=== PATIENT | male | born 1940 | race Caucasian/White ===

== ENCOUNTER 2022-10-21 14:51 | Outpatient (AMB) | payer MEDICARE, SELFPAY ==
--- NOTE | 2022-10-21 14:53 | A.OFFVIS_ITS ---
Intake Vital Signs 10/21/22 14:54 Height 5 ft 8 in Weight 210 lb 8.663 oz BMI 32.0 BP 120/70 Blood Pressure Location Lt brachial Position Sitting Respiration 14 Pulse 62 Pulse Source Pulse Oximeter Pulse Oximetry (%) 98 Oxygen Delivery Method Room Air Intake Visit Reasons: Emphysema Allergies No Known Allergies Allergy (Verified 10/21/22 14:54) Medication List - Last Reconciled 10/21/22 by Bailee Pisano RRT No Known Home Meds HPI HPI Comments History of Present Illness Details The patient is here for pulmonary evaluation. The patient is an 82-year-old gentleman who is developing worsening cough. His is very concerned. The cough is mixed productive and nonproductive. He does associated with a postnasal drip. He does not use any medications for this. In the meantime as far as the workup he did have a chest x-ray that was abnormal and ended up having a CT scan of the chest which I personally reviewed. The patient did have some slight degree of emphysema but not significant. More significant was the fact that he had peripheral subpleural reticular changes consistent with interstitial lung disease. No evidence of any ground-glass opacities or honeycombing. In addition to the findings the patient was noted to have a small subcentimeter pulmonary nodule measuring around 4 mm in size. I reassured the patient and his that this is extremely small and will have a repeat CT scan in 6 months' time. In the meantime will treat him for sinusitis and see if he has improvement of his cough. For the most part the cough does not bother him this is a people around him. Denies any significant weight loss or night sweats. Otherwise the patient is feeling well. [facility], [facility] Medical History (Updated 10/24/22 @ 23:39 by Davon Osei MD) Bronchitis History of colon polyps Hypertension ILD (interstitial lung disease) Pulmonary nodules Sinusitis Upper airway cough syndrome Surgical History (Updated 10/21/22 @ 11:03 by Lisa Johnson PA-C) History of colonoscopy Family History (Updated 10/21/22 @ 11:02 by Lisa Johnson PA-C) Brother Colon cancer Review of Systems Const Denies fever(s) and Denies weight loss Eyes Denies change in vision ENT Reports nasal congestion, Reports nasal discharge and Reports post nasal drip Card Denies chest pain and Denies dyspnea Resp Reports chest congestion, Reports cough, Denies dyspnea and Denies wheezing GI Denies abdominal pain Musc Reports no additional complaints Skin/Breast Denies rash Neuro Reports no additional complaints Lloyd/Lymph Denies easy bruising and Denies lymphadenopathy Aller/Immun Denies wheezing Physical Exam Vital Signs: Last Vital Signs Pulse 62 10/21/22 14:54 Resp 14 10/21/22 14:54 BP 120/70 10/21/22 14:54 Pulse Ox 98 10/21/22 14:54 Oxygen Delivery Method Room Air 10/21/22 14:54 BMI result Body Mass Index 32.0 Const General: cooperative and comfortable HEENT Head: Yes normocephalic Neck Neck: Yes supple Chest Chest palpation & inspection: normal inspection of the chest Resp Effort & Inspection: normal respiratory effort Auscultation: crackles and diminished lung sounds Cardio Heart sounds: S1 normal heart sound present and S2 normal heart sound present GI Palpation (GI): Soft to palpation Skin General skin exam: no rashes or lesions noted Extrem General: Yes no clubbing, cyanosis or edema Assessment & Plan Assessment & Plan (1) Upper airway cough syndrome: Code(s): R05.8 - Other specified cough (2) Bronchitis: Code(s): J40 - Bronchitis, not specified as acute or chronic (3) Pulmonary nodules: Code(s): R91.8 - Other nonspecific abnormal finding of lung field (4) Sinusitis: Code(s): J32.9 - Chronic sinusitis, unspecified Qualifiers: Sinusitis location: unspecified location Chronicity: subacute Qualified Code(s): J01.90 - Acute sinusitis, unspecified (5) ILD (interstitial lung disease): Code(s): J84.9 - Interstitial pulmonary disease, unspecified Plan I suspect that the ILD has been there for PFTs Doxycycline nasal steroid therapy CT chest 04/2022 F/U 6 months Orders: Orders 2 CT chest wo IV con 6 Months R91.8 - Other nonspecific abnormal finding of lung field Medications: New doxycycline hyclate 100 mg PO BID 20 caps 0RF 10 days fluticasone propionate 50 mcg/actuation 2 sprays intranasal DAILY 15.8 mL 1RF 30 days J31.0 - Chronic rhinitis Coding Level of Care Code New Pt Level 4 (51884) Diagnoses Upper airway cough syndrome R05.8 Bronchitis J40 Pulmonary nodules R91.8 Sinusitis J01.90 Sinusitis location: unspecified location Chronicity: subacute ILD (interstitial lung disease) J84.9 Time Spent (min) 45
[2022-10-21 14:54] VITALS: BP 120/70; PULSE 62; RESP 14; O2SAT 98; BMI 32.0
== END 2022-10-25 09:22 | disposition home or self-care (01) ==
PROVIDERS: PCP Internal Medicine; Visit Provider Hospitalist
DX: R05.8 Other specified cough (principal); J40 Bronchitis, not specified as acute or chronic; R91.8 Other nonspecific abnormal finding of lung field; J01.90 Acute sinusitis, unspecified; J84.9 Interstitial pulmonary disease, unspecified
CPT/HCPCS: 99204

== ENCOUNTER → 2022-10-21 14:51 | Outpatient (BNVA) | payer MEDICARE, SELFPAY | PROVIDERS: PCP Internal Medicine; Visit Provider Hospitalist | DX: J01.90 Acute sinusitis, unspecified (principal); J84.9 Interstitial pulmonary disease, unspecified; J40 Bronchitis, not specified as acute or chronic; R91.8 Other nonspecific abnormal finding of lung field; R05.8 Other specified cough | CPT/HCPCS: 99202 ==

== ENCOUNTER 2023-05-02 14:43 | Outpatient (AMB) | payer MEDICARE, SELFPAY ==
[2023-05-02 14:47] VITALS: BP 156/78; PULSE 84; O2SAT 98; BMI 31.8
--- NOTE | 2023-05-02 14:47 | MHC.OFFVIS ---
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 His is very concerned. The cough is mixed productive and nonproductive. He does associated with a postnasal drip. He does not use any medications for this. In the meantime as far as the workup he did have a chest x-ray that was abnormal and ended up having a CT scan of the chest which I personally reviewed. The patient did have some slight degree of emphysema but not significant. More significant was the fact that he had peripheral subpleural reticular changes consistent with interstitial lung disease. No evidence of any ground-glass opacities or honeycombing. In addition to the findings the patient was noted to have a small subcentimeter pulmonary nodule measuring around 4 mm in size. I reassured the patient and his that this is extremely small and will have a repeat CT scan in 6 months' time. In the meantime will treat him for sinusitis and see if he has improvement of his cough. For the most part the cough does not bother him this is a people around him. Denies any significant weight loss or night sweats. Otherwise the patient is feeling well. 05/02/2023 the patient is here for a pulmonary follow-up visit. Overall the patient has been doing better from a cough standpoint. Denies any significant chest congestion. We had did request a an Acapella valve for him for the chest congestion but he never used it. he does not feel like he needs it. He is getting excited about the spring as he is going to start playing golf. He does play 18 holes although he does use a cart. Denies any significant worsening of the shortness of breath. We did review his recent CT scan of the chest that he just had a [facility]. We also did compared to the CT scan he had back in April 2022. it appears that the interstitial lung disease is about the same. The pulmonary fibrosis has not progressed and is primarily in the periphery of the lungs. Has 1 small area of with ground-glass in the left upper lobe but is very minimal. He also has pulmonary nodules that are being monitor. Does have not changed in size. The plan will be to repeat the CT scan in a year's time. If the patient develops any worsening symptoms prior to that he will call for an earlier assessment. [facility] Medical History (Updated 10/24/22 @ 23:39 by Davon Osei MD) ILD (interstitial lung disease) Sinusitis Bronchitis Upper airway cough syndrome History of colon polyps Pulmonary nodules Hypertension Surgical History (Updated 10/21/22 @ 11:03 by Lisa Johnson PA-C) History of colonoscopy Family History (Updated 10/21/22 @ 11:02 by Lisa Johnson PA-C) Brother Colon cancer Social History (Updated 05/02/23 @ 14:56 by Alfreda Daigle LPN) Patient Tobacco Use Status: Never used Tobacco Review of Systems Const Denies fever(s) and Denies weight loss Eyes Denies change in vision ENT Reports nasal congestion, Reports nasal discharge and Reports post nasal drip Card Denies chest pain and Denies dyspnea Resp Denies chest congestion, Reports cough, Denies dyspnea and Denies wheezing GI Denies abdominal pain Musc Reports no additional complaints Skin/Breast Denies rash Neuro Reports no additional complaints Lloyd/Lymph Denies easy bruising and Denies lymphadenopathy Aller/Immun Denies wheezing Physical Exam Vital Signs: Last Vital Signs Pulse 84 05/02/23 14:47 BP 156/78 H 05/02/23 14:47 Pulse Ox 98 05/02/23 14:47 Oxygen Delivery Method Room Air 05/02/23 14:47 BMI result Body Mass Index 31.8 Const General: cooperative and comfortable HEENT Head: Yes normocephalic Neck Neck: Yes supple Chest Chest palpation & inspection: normal inspection of the chest Resp Effort & Inspection: normal respiratory effort Auscultation: crackles and diminished lung sounds Cardio Heart sounds: S1 normal heart sound present and S2 normal heart sound present GI Palpation (GI): Soft to palpation Skin General skin exam: no rashes or lesions noted Extrem General: Yes no clubbing, cyanosis or edema Assessment & Plan Assessment & Plan (1) Upper airway cough syndrome: Code(s): R05.8 - Other specified cough (2) Pulmonary nodules: Code(s): R91.8 - Other nonspecific abnormal finding of lung field (3) ILD (interstitial lung disease): Code(s): J84.9 - Interstitial pulmonary disease, unspecified Plan nasal saline rinse as needed CT chest 04/2024 F/U 12 months Coding Level of Care Code Est Pt Level 4 (62736) Diagnoses Upper airway cough syndrome R05.8 Pulmonary nodules R91.8 ILD (interstitial lung disease) J84.9 Time Spent (min) 17
== END 2023-05-02 15:19 | disposition home or self-care (01) ==
PROVIDERS: PCP Internal Medicine; Visit Provider Hospitalist
DX: R05.8 Other specified cough (principal); R91.8 Other nonspecific abnormal finding of lung field; J84.9 Interstitial pulmonary disease, unspecified
CPT/HCPCS: 99214

== ENCOUNTER → 2023-05-02 14:43 | Outpatient (BNVA) | payer MEDICARE, SELFPAY | PROVIDERS: PCP Internal Medicine; Visit Provider Hospitalist | DX: R91.8 Other nonspecific abnormal finding of lung field (principal); J84.9 Interstitial pulmonary disease, unspecified; R05.8 Other specified cough | CPT/HCPCS: 99212 ==

== ENCOUNTER 2024-05-02 11:17 | Outpatient (AMB) | payer MEDICARE, SELFPAY ==
--- NOTE | 2024-05-02 11:23 | MHC.OFFVIS ---
Vital Signs 05/02/24 11:24 Height 5 ft 8 in Weight 208 lb 5.389 oz BMI 31.7 BP 152/76 H Blood Pressure Location Rt brachial Position Sitting Pulse 70 Pulse Source Pulse Oximeter Pulse Oximetry (%) 98 Oxygen Delivery Method Room Air Intake Visit Reasons: Pulmonary Nodules Allergies No Known Allergies Allergy (Verified 05/02/24 11:27) HPI Comments Details: The patient is an 84-year-old gentleman who is developing worsening cough. His is very concerned. The cough is mixed productive and nonproductive. He does associated with a postnasal drip. He does not use any medications for this. In the meantime as far as the workup he did have a chest x-ray that was abnormal and ended up having a CT scan of the chest which I personally reviewed. The patient did have some slight degree of emphysema but not significant. More significant was the fact that he had peripheral subpleural reticular changes consistent with interstitial lung disease. No evidence of any ground-glass opacities or honeycombing. In addition to the findings the patient was noted to have a small subcentimeter pulmonary nodule measuring around 4 mm in size. I reassured the patient and his that this is extremely small and will have a repeat CT scan in 6 months' time. In the meantime will treat him for sinusitis and see if he has improvement of his cough. For the most part the cough does not bother him this is a people around him. Denies any significant weight loss or night sweats. Otherwise the patient is feeling well. 05/02/2023 the patient is here for a pulmonary follow-up visit. Overall the patient has been doing better from a cough standpoint. Denies any significant chest congestion. We had did request a an Acapella valve for him for the chest congestion but he never used it. he does not feel like he needs it. He is getting excited about the spring as he is going to start playing golf. He does play 18 holes although he does use a cart. Denies any significant worsening of the shortness of breath. We did review his recent CT scan of the chest that he just had a [facility]. We also did compared to the CT scan he had back in April 2022. it appears that the interstitial lung disease is about the same. The pulmonary fibrosis has not progressed and is primarily in the periphery of the lungs. Has 1 small area of with ground-glass in the left upper lobe but is very minimal. He also has pulmonary nodules that are being monitor. Does have not changed in size. The plan will be to repeat the CT scan in a year's time. If the patient develops any worsening symptoms prior to that he will call for an earlier assessment. 05/02/2024 the patient is here for pulmonary follow-up visit. Overall he is doing very well from a respiratory status. Does have a cough primarily due to a postnasal drip but is minimal in severity. Does not affect his quality of life. He was prescribed medications and therapies but he did not use any of them. He feels just fine without any therapies. He did not any limitations from a respiratory status. He did undergo a CT scan of the chest at [facility] which we personally reviewed. The 1 cm nodular density that we have been following actually resolved. The patient does have evidence of scattered diverticulosis. Apparently his GI doctor had told him so previously. Therefore we talked about making sure the using get too constipated and he can talk to his GI doctor regarding any special diets that he should pursue. But otherwise he is doing well from a respiratory status will follow-up as needed. No need for additional imaging studies at this time. [facility] Medical History (Updated 05/02/24 @ 21:33 by Davon Osei MD) ILD (interstitial lung disease) Sinusitis Bronchitis Upper airway cough syndrome History of colon polyps Pulmonary nodules Hypertension Surgical History (Updated 10/21/22 @ 11:03 by Lisa Johnson PA-C) History of colonoscopy Family History (Updated 10/21/22 @ 11:02 by Lisa Johnson PA-C) Brother Colon cancer Social History Patient Tobacco Use Status: Never used Tobacco Review of Systems Const Denies fever(s) and Denies weight loss Eyes Denies change in vision ENT Reports nasal congestion, Reports nasal discharge and Reports post nasal drip Card Denies chest pain and Denies dyspnea Resp Denies chest congestion, Reports cough, Denies dyspnea and Denies wheezing GI Denies abdominal pain Musc Reports no additional complaints Skin/Breast Denies rash Neuro Reports no additional complaints Lloyd/Lymph Denies easy bruising and Denies lymphadenopathy Aller/Immun Denies wheezing Physical Exam Vital Signs: Last Vital Signs Pulse 70 05/02/24 11:24 BP 152/76 H 05/02/24 11:24 Pulse Ox 98 05/02/24 11:24 Oxygen Delivery Method Room Air 05/02/24 11:24 BMI result Body Mass Index 31.7 Const General: cooperative and comfortable HEENT Head: Yes normocephalic Neck Neck: Yes supple Chest Chest palpation & inspection: normal inspection of the chest Resp Effort & Inspection: normal respiratory effort Auscultation: diminished lung sounds Cardio Heart sounds: S1 normal heart sound present and S2 normal heart sound present GI Palpation (GI): Soft to palpation Skin General skin exam: no rashes or lesions noted Extrem General: Yes no clubbing, cyanosis or edema Assessment & Plan Assessment & Plan (1) Upper airway cough syndrome: Code(s): R05.8 - Other specified cough Category: Medical (2) Pulmonary nodules: Comment: resolved Code(s): R91.8 - Other nonspecific abnormal finding of lung field Category: Medical (3) ILD (interstitial lung disease): Code(s): J84.9 - Interstitial pulmonary disease, unspecified Category: Medical Plan nasal saline rinse as needed CT chest 04/2024 with resolution of nodule F/U as needed Coding Level of Care Code Est Pt Level 4 (21884) Diagnoses Upper airway cough syndrome R05.8 Pulmonary nodules R91.8 ILD (interstitial lung disease) J84.9 Time Spent (min) 17
[2024-05-02 11:24] VITALS: BP 152/76; PULSE 70; O2SAT 98; BMI 31.7
== END 2024-05-02 11:45 | disposition home or self-care (01) ==
LOC: HO.HPS 11:17
PROVIDERS: PCP Internal Medicine; Visit Provider Hospitalist
DX: R05.8 Other specified cough (principal); R91.8 Other nonspecific abnormal finding of lung field; J84.9 Interstitial pulmonary disease, unspecified
CPT/HCPCS: 99214

== ENCOUNTER → 2024-05-02 11:17 | Outpatient (BNVA) | payer MEDICARE, SELFPAY | PROVIDERS: PCP Internal Medicine; Visit Provider Hospitalist | DX: J84.9 Interstitial pulmonary disease, unspecified (principal); R91.8 Other nonspecific abnormal finding of lung field; R09.82 Postnasal drip; R05.8 Other specified cough | CPT/HCPCS: 99212 ==